=== PATIENT | female | born 1960 | race Caucasian/White ===

== ENCOUNTER 2018-10-02 12:43 | Day surgery (SDC) | payer OTHER ==
[2018-10-02] MEDS ORDERED: LIDOCAINE 2% (SDV) 5 ML INJ (15:02)
[2018-10-02] MEDS ORDERED: PROPOFOL 60 ML (15:02)
[2018-10-02] MEDS ORDERED: ONDANSETRON 4 MG INJ IV (15:30)
[2018-10-02] MEDS ORDERED: EPHEDrine 25 MG/5 ML SYG ×2 (15:48→16:05)
[2018-10-02] MEDS ORDERED: PHENYLephrine (100 MCG/ML) 10ML SYG (16:13)
== END 2018-10-02 16:37 | disposition home or self-care (01) ==
LOC: GIL 12:43
DX: Z12.11 Encounter for screening for malignant neoplasm of colon (principal); K62.89 Other specified diseases of anus and rectum; K20.9 Esophagitis, unspecified; K29.70 Gastritis, unspecified, without bleeding
CPT/HCPCS: 43239; 88305; 88312; 88313